=== PATIENT | female | born 1945 | race Caucasian/White ===

== ENCOUNTER 2018-03-19 11:56 | Emergency (ER) | END 2018-03-19 14:24 | disposition home or self-care (01) ==

== ENCOUNTER 2018-11-03 21:09 | Emergency (ER) | payer MEDICARE, OTHER ==
[~2018-11-03] VITALS: Ht 167.6 cm; Wt 82.5 kg
[~2018-11-03 21:09] MED LIST: CLON0.5T14 PO; DEXL60CA2 PO; DULO30CA47 PO; FAMO-96 PO; GABA300C16 PO; METO-336 PO; OLME1TAB33 PO; ONDA4TAB14 PO; RISP2TAB3 PO
[2018-11-03 21:11] VITALS: Ht 167.6 cm; Wt 82.5 kg
--- NOTE | 2018-11-03 21:49 | ERD ---
ER Documentation Chief Complaint Chief Complaint [id number],fr home,"might have mixed metropolol & clonidine per pt,dizziness HPI Patient is a 73-year-old female with hypertension who presents for an accidental overdose. The patient was brought in by ambulance. She said that she took atenolol for her blood pressure which was elevated at 160/101 at home. She then thinks that she may have taken an extra dose of atenolol by accident. She got nervous and so she called 911 to bring her to the emergency department. She says that her primary doctor is in [place]. She has no symptoms at this time. ROS All systems reviewed and are negative except as per history of present illness. Medications Home Meds Active Scripts Famotidine* (Pepcid*) 20 Mg Tablet, 20 MG PO BID for 17 Days, TAB Prov:LELO MURPHY MD 03/19/18 Ondansetron (Ondansetron Odt) 4 Mg Tab.rapdis, 4 MG PO Q6H PRN for NAUSEA AND/OR VOMITING, #20 TAB Prov:LELO MURPHY MD 03/19/18 Reported Medications Xsycjekppo-Xnohoyspdm-ARBO (Tribenzor) 40-5-25 Mg Tablet, 1 TAB PO DAILY, TAB 03/19/18 Dexlansoprazole (Dexilant) 60 Mg Cap., 60 MG PO DAILY, #30 CAP 03/19/18 Duloxetine Hcl* (Duloxetine Hcl*) 30 Mg Capsule.dr, 30 MG PO DAILY, #30 CAP 03/19/18 Gabapentin* (Gabapentin*) 300 Mg Capsule, 300 MG PO QHS, #60 CAP 03/19/18 Risperidone* (Risperidone*) 2 Mg Tablet, 2 MG PO DAILY, TAB 03/19/18 Metoprolol Succinate* (Toprol XL*) 100 Mg Tab.sr.24h, 100 MG PO DAILY, #30 TAB 03/19/18 Clonazepam* (Clonazepam*) 0.5 Mg Tablet, 0.5 MG PO DAILY for ANXIETY, TAB 03/19/18 Allergies Allergies: Coded Allergies: atropine (Verified Allergy, Unknown, 03/19/18) PMhx/Soc History of Surgery: Yes (HERNIA REPAIR, GALLBLADDER SX) Anesthesia Reaction: No Hx Neurological Disorder: No Hx Alcohol Use: No Hx Substance Use: No Hx Tobacco Use: No Smoking Status: Never smoker FmHx Family History: No diabetes Physical Exam Vitals Vital Signs Date Temp Pulse Resp B/P (MAP) Pulse Ox O2 O2 Flow FiO2 Time Delivery Rate 11/03/18 98.5 60 14 138/61 98 Room Air 22:49 (86) 11/03/18 98.5 72 18 159/84 97 21:11 (109) Physical Exam Const: No acute distress Head: Atraumatic Eyes: Normal Conjunctiva ENT: Normal External Ears, Nose and Mouth. Neck: Full range of motion. No meningismus. Resp: Clear to auscultation bilaterally Cardio: Regular rate and rhythm, no murmurs Abd: Soft, non tender, non distended. Normal bowel sounds Skin: No petechiae or rashes Back: No midline or flank tenderness Ext: No cyanosis, or edema Neur: Awake and alert Psych: Normal Mood and Affect Procedures/MDM EKG read by me: Rate/Rhythm: Regular rate and rhythm at a rate of 66 Intervals: Normal Impression: LVH Patient is a 73-year-old female who presents with accidental overdose of atenolol. Her heart rate here is normal and EKG shows LVH but no signs of arrhy thmias or ischemia at this time. The patient is otherwise well-appearing and the overdose was accidental. I do not believe there was intentional self-harm. The patient will be discharged but will need to follow-up with her primary doctor. She can return sooner for any worsening symptoms. Departure Diagnosis: Primary Impression: Accidental overdose Encounter type: initial encounter Qualified Codes: T50.901A - Poisoning by unspecified drugs, medicaments and biological substances, accidental (unintentional), initial encounter Condition: Fair Patient Instructions: Overdose, Accidental (Adult) Referrals: Your doctor Additional Instructions: Call your primary care doctor TOMORROW for an appointment during the next 1-2 days.See the doctor sooner or return here if your condition worsens before your appointment time. JAC WHITTEN MD Nov 03, 2018 21:49
[2018-11-03 22:49] VITALS: BP 138/61; PULSE 60; RESP 14
== END 2018-11-03 22:50 | disposition home or self-care (01) ==
LOC: E/R 21:09
DX: T44.7X1A Poisoning by beta-adrenoreceptor antagonists, accidental (unintentional), initial encounter (principal); I10 Essential (primary) hypertension; Y92.9 Unspecified place or not applicable
CPT/HCPCS: 93005